=== PATIENT | male | born 1975 | race Caucasian/White ===

== ENCOUNTER 2016-10-14 18:11 | Emergency (ER) | payer OTHER ==
[~2016-10-14] VITALS: Ht 182.9 cm; Wt 94.1 kg
[2016-10-14 18:23] VITALS: Ht 182.9 cm; Wt 94.1 kg
[2016-10-14] MEDS ORDERED: BUPR1SUB23 PO (18:42)
[2016-10-14] MEDS ORDERED: PENI500T2 PO (18:48)
[2016-10-14] MEDS ORDERED: KETO10TA PO (18:48)
[2016-10-14 18:52] VITALS: BP 137/77; PULSE 76; TEMP 37; O2SAT 94
--- NOTE | 2016-10-14 20:39 | EMERGENCY ROOM VISIT NOTE ---
ED Visit Note First contact with patient: 18:27 CHIEF COMPLAINT: Tooth infection. HISTORY OF PRESENT ILLNESS: Mr. Ramos is a 41-year-old white male who ambulates into the ED accompanied by female friend complaining of right maxillary dental pain. He reports a progressive dental pain for the last 2 weeks. He reports he was pushing on his face earlier today and thought he ruptured an abscess. Since that time he reports he is having worsening pain and it is now radiating into the area just under the right eye. Currently he describes the pain as a pressure and throbbing sensation. He rates his discomfort 9/10. His pain worsens with palpation of the involved tooth and the right zygomatic arch area. He has not identified any alleviating factors related to the pain. He has not taken any medications for pain. He denies any associated symptoms including facial swelling, erythema, fevers, chills, sweats, headache, dizziness, visual changes, nasal drainage, sore throat , difficulty swallowing, voice changes. REVIEW OF SYSTEMS: As noted above in History of Present Illness. 8 body systems were reviewed with this patient and found to be negative unless noted above otherwise. PMH: Narcotic abuse. CURRENT MEDICATION: Suboxone. ALLERGIES TO MEDICATION: Patient denies. SOCIAL HISTORY: Patient is currently employed; he feels safe in his home environment; he admits to tobacco and alcohol use. PHYSICAL EXAM: Vital Signs: Date Time Temp Pulse Resp B/P Pulse Ox O2 Delivery O2 Flow Rate FiO2 10/14/16 18:52 37.0 76 16 137/77 94 10/14/16 18:23 37.0 76 16 137/77 94 Room Air General: 41 year-old white male in mild distress due to pain, nontoxic appearing , afebrile and hemodynamically stable. Neurological: Awake, alert and oriented to person, place and time. Answering questions appropriately and following commands. Normal gait. Good hand eye coordination. No focal motor or sensory deficits. Skin: Warm, dry and pink. HEENT: Atraumatic and normocephalic. Face: No swelling or skin erythema. Mild tenderness over the maxilla and minimal tenderness over the right frontal sinus. Oral cavity is moist and pink. Airway is patent. Uvula is midline and no abscesses are seen. Speech is normal. No drooling. No intraoral trauma is noted. Obvious signs of dental decay in the area of tooth 4. The tooth is tender to palpation. No abscesses, erythema or edema identified. No cervical or submandibular lymphadenopathy. ED COURSE: Patient is assessed as noted above. Patient is educated about his findings and instructed on her treatment plan; he verbalizes understanding and agreement with this plan. CLINIC IMPRESSION: Dental pain. Possible early abscess. DISPOSITION: Patient discharged home in stable condition; prior to departure he was reassessed and subjectively reported he was better and rated his discomfort 3/10. PLAN: Patient was prescribed 500 mg of Pen-Vee K 4 times a day for 10 days. Patient was told because he was currently on Suboxone and was not able to offer him narcotic medication that he was given a prescription for Toradol 10 mg every 6 hours as needed for pain. Additional measures were discussed with the patient including covering with dental wax, using a liquid/mechanical soft diet and tobacco avoidance. Patient was encouraged to follow-up with his dentist as soon as practical. Patient was encouraged return the ED for uncontrolled pain, facial swelling, fevers or any new/concerning symptoms.
== END 2016-10-14 18:55 | disposition home or self-care (01) ==
LOC: C.EDB 18:15 → C.EDD 18:55
DX: K08.89 Other specified disorders of teeth and supporting structures (principal); F17.200 Nicotine dependence, unspecified, uncomplicated